=== PATIENT | female | born 1985 | race Caucasian/White ===

== ENCOUNTER 2021-02-06 09:11 | Emergency (ER) | payer OTHER ==
[~2021-02-06] VITALS: Ht 154.9 cm; Wt 72.6 kg
[2021-02-06] MEDS ORDERED: LEVSIN0.125 MG PO (14:03)
== END 2021-02-06 14:12 | disposition home or self-care (01) ==
LOC: ER 09:11
DX: R10.9 Unspecified abdominal pain (principal)

== ENCOUNTER 2022-04-11 09:00 | Outpatient (CLI) | payer OTHER ==
[~2022-04-11 09:00] MED LIST: LEVSIN0.125 MG PO
== END 2022-04-11 09:12 | disposition home or self-care (01) ==
LOC: RX STUDY 09:00
PROVIDERS: ATTEND Obstetrics & Gynecology Reproductive Endocrinology
DX: N85.02 Endometrial intraepithelial neoplasia [EIN] (principal); N93.0 Postcoital and contact bleeding

== ENCOUNTER 2024-05-19 11:39 | Outpatient (CLI) | payer OTHER ==
[2024-05-20] MEDS ORDERED: PRENATAL TABLE1 EAC1 PO (04:37)
[2024-05-20] MEDS ORDERED: ADULT ASPIRIN81 MG PO (04:38)
== END 2024-05-19 12:35 | disposition home or self-care (01) ==
LOC: NST 11:39
PROVIDERS: ATTEND Obstetrics & Gynecology
DX: Z34.83 Encounter for supervision of other normal pregnancy, third trimester (principal)

== ENCOUNTER 2024-05-19 14:00 | Inpatient (IN) | payer OTHER ==
[~2024-05-19] VITALS: Ht 154.9 cm; Wt 79.4 kg
[2024-05-20] VITALS (9 sets, daily range): BP systolic 126–150; BP diastolic 71–91
[2024-05-20] MEDS ORDERED: MORPHINE SULFATE 4 MG/ML CARTRIDGE IV PRN (04:15)
[2024-05-20] MEDS ORDERED: RINGERS SOLUTION,LACTATED 1,000 ML IV SCH (04:15)
[2024-05-20] MEDS ORDERED: PRENATAL TABLE1 EAC1 PO (04:37)
[2024-05-20] MEDS ORDERED: ADULT ASPIRIN81 MG PO (04:38)
[2024-05-20 04:54] LABS: PH,URINE 5.5 (5.0-8.0); URINE APPEARANCE Clear; URINE BILIRRUBIN Negative (NEGATIVE); URINE BLOOD Negative; URINE COLOR Yellow; URINE GLUCOSE Negative (NEGATIVE); URINE KETONE Negative (NEGATIVE); URINE LEUKOCYTE Negative; URINE NITRATE Negative; URINE PROTEIN Negative (NEGATIVE); URINE UROBILINOGEN 0.2 E.U./dl
[2024-05-20 04:56] LABS: HEMATOCRIT 35.4 % (36.0-45.00); HEMOGLOBIN 12.3 g/dL (12.0-15.00); MEAN CELL VOLUME 82.3 fL (80.00-100.00); MEAN CORPUSCULAR HEMOGLOBIN 28.6 pg (27.00-32.0); MEAN CORPUSCULAR HGB CONC 34.8 g/dl (32.0-36.0); PLATELET COUNT 252 K/uL (150-450); RED CELL DISTRIBUTION WIDTH 14.6 % (11.5-14.5)
[2024-05-20 04:58] LABS: URINE EPITHELIAL CELLS 2.7 uL (0.0-38.8); URINE WBC 3.3 uL (0.0-23.2)
[2024-05-20 05:12] LABS: INR < 0.93; PARTIAL THROMBOPLASTIN TIME 27.5 SECONDS (22.0-34.0); PROTHROMBIN TIME 10.1 SECONDS (9.0-11.5)
[2024-05-20 05:19] LABS: ALBUMIN 2.8 gm/dL (3.4-5.0); BILIRUBIN TOTAL 0.57 mg/dL (0.3-1.2); CALCIUM 9.3 mg/dL (8.5-10.1); CREATININE SERUM 0.58 mg/dL (0.55-1.02); GFR 115.14; GLOBULINA 3.2 G/DL (2.4-3.5); POTASSIUM 4.26 mEq/L (3.5-5.1)
[2024-05-20] MEDS ORDERED: ONDANSETRON HCL 2 MG/ML VIAL IV ONE (06:45)
[2024-05-20] MEDS ORDERED: OXYTOCIN 500 ML IV ONE (06:45)
[2024-05-20 07:05] LABS: URINE RBC 1.2 uL (0.0-20.8)
[2024-05-20] MEDS ORDERED: CHLORHEXIDINE GLUCONATE 120 ML BOTTLE TOP ONE (07:45)
[2024-05-20] MEDS ORDERED: IBUprofen 400 MG TABLET PO PRN (07:45)
[2024-05-20] MEDS ORDERED: OXYTOCIN 1,000 ML IV SCH (07:45)
[2024-05-20] MEDS ORDERED: LIDOCAINE HCL 1% 10ML VIAL IJ ONE (10:15)
[2024-05-20] MEDS ORDERED: ERYTHROMYCIN BASE OPHT 1GM EACH TUBE OP ONE (10:15)
[2024-05-20 13:13] LABS: HEMOGLOBIN 11.9 g/dL (12.0-15.00); MEAN CELL VOLUME 81.7 fL (80.00-100.00); MEAN CORPUSCULAR HEMOGLOBIN 28.5 pg (27.00-32.0); MEAN CORPUSCULAR HGB CONC 34.9 g/dl (32.0-36.0); PLATELET COUNT 226 K/uL (150-450); RED BLOOD COUNT 4.16 M/uL (4.00-6.00); RED CELL DISTRIBUTION WIDTH 14.8 % (11.5-14.5)
[2024-05-21 00:41] VITALS: BP 132/83
[2024-05-21 08:09] VITALS: BP 124/84
[2024-05-21 16:51] VITALS: BP 133/81
[2024-05-22 00:51] VITALS: BP 118/77
[2024-05-22 08:55] VITALS: BP 112/73; BP 133/84
== END 2024-05-22 13:58 | disposition home or self-care (01) | DRG 807 ==
LOC: LDR 05-20 03:59 → OB/GYN 05-20 03:59 → LDR 05-29 14:00
PROVIDERS: Obstetrics & Gynecology; ADMIT Obstetrics & Gynecology Maternal & Fetal Medicine; ATTEND Obstetrics & Gynecology Maternal & Fetal Medicine
PROC: 10E0XZZ Delivery of Products of Conception, External Approach (ICD-10-PCS; principal; 2024-05-20)
PROC: 0KQM0ZZ Repair Perineum Muscle, Open Approach (ICD-10-PCS; 2024-05-20)
PROC: 4A1HXCZ Monitoring of Products of Conception, Cardiac Rate, External Approach (ICD-10-PCS; 2024-05-20)
DX: O70.1 Second degree perineal laceration during delivery (principal); Z37.0 Single live birth; Z3A.38 38 weeks gestation of pregnancy; Z20.822 Contact with and (suspected) exposure to COVID-19